=== PATIENT | female | born 1985 | race Caucasian/White ===

== ENCOUNTER → 2016-10-13 | Outpatient (CLI) | payer BC ==
[2016-10-13 18:57] LABS: ALT 27 U/L (9-52); AST 21 U/L (14-36); Alkaline Phosphatase 52 U/L (38-126); Anion Gap 11 mmol/L; Blood Urea Nitrogen 14 mg/dL (7-17); Calcium 9.8 mg/dL (8.4-10.2); Carbon Dioxide 26 mmol/L (22-30); Chloride 106 mmol/L (98-107); Cholesterol 192 mg/dL (<200); Glucose 82 mg/dL (74-99); HDL Cholesterol 59 mg/dL (40-60); Non-African American GFR(MDRD) >60 (>60 ml/min/1.73 sqM); Sodium 143 mmol/L (137-145); Total Bilirubin 0.5 mg/dL (0.2-1.3); Total Protein 7.7 g/dL (6.3-8.2); Triglycerides 96 mg/dL (<150)
== END | disposition home or self-care (01) ==
LOC: MMGSC 10:19
PROVIDERS: ATTEND Family Medicine
DX: Z00.00 Encounter for general adult medical examination without abnormal findings (principal)
CPT/HCPCS: 36415; 80053; 80061

== ENCOUNTER → 2016-10-22 | Outpatient (CLI) | payer BC ==
[2016-10-22 18:53] LABS: Follicle Stimulating Hormone 2.3 mIU/mL; Prolactin 10.8 ng/mL (3.0-18.6)
== END ==
LOC: MMGSC 15:39
PROVIDERS: ATTEND Family Medicine
DX: E03.9 Hypothyroidism, unspecified (principal); R63.4 Abnormal weight loss; N92.6 Irregular menstruation, unspecified
CPT/HCPCS: 36415; 82626; 83001; 83002; 84146; 84439; 84443

== ENCOUNTER → 2021-09-17 | Outpatient (CLI) | payer BC ==
--- NOTE | 2021-09-18 02:11 | MR ---
EXAMINATION TYPE: MR shoulder LT wo con DATE OF EXAM: 09/17/2021 COMPARISON: None HISTORY: Left Shoulder Pain Multiplanar multiecho imaging of the left shoulder without contrast. The AC joint is intact. The biceps tendon is intact. Subscapularis tendon is intact. The glenoid labr a appear intact. No fracture seen. No evidence of subacromial impingement. The supraspinatus tendon a ppears fairly normal. No retraction. IMPRESSION: Negative MRI scan of the left shoulder. No evidence of rotator cuff tear.
== END | disposition home or self-care (01) ==
LOC: RADMRIMAIN 14:28
PROVIDERS: ATTEND Orthopaedic Surgery
DX: M25.512 Pain in left shoulder (principal)

== ENCOUNTER 2022-02-27 10:21 | Day surgery (SDC) | payer BC ==
--- NOTE | 2022-02-27 03:07 | HP ---
HISTORY AND PHYSICAL DATE OF SURGERY: 02/27/2022. HISTORY OF PRESENT ILLNESS: Leann Lucio is a 36-year-old patient, seen with progressive left shoulder pain. We discussed options for treatment. She elected to proceed with left shoulder arthroscopy. Consent was obtained. PAST MEDICAL HISTORY: Hypothyroidism. PAST SURGICAL HISTORY: section. DAILY MEDICATIONS: Levothyroxine. ALLERGIES: None. SOCIAL HISTORY: She denies tobacco use. PHYSICAL EVALUATION OF THE LEFT SHOULDER: Flexion is 160 degrees, abduction is 150 degrees, external rotation is 60 degrees with pain and weakness. Tenderness along the anterolateral acromion and rotator cuff insertion site as well as the subacromial space. Impingement is positive at 100. Drop- arm sign is positive. Distal neurovascular exam is intact. RADIOGRAPHS: Radiographs of the left shoulder; type 2 acromion. MRI of the left shoulder, no abnormality. IMPRESSION: 1. Left shoulder impingement with possible rotator cuff tear. 2. Hypothyroidism. PLAN: Left shoulder arthroscopy with subacromial decompression, possible arthroscopic rotator cuff repair and debridement. MMMIRNA / NAZIAN: [id number] /
[~2022-02-27 10:21] MED LIST: DEXAMETHASONE SOD PHOSPHATE 4 MG/ML 1 ML VIAL IV ONE; HYDROmorphone 0.5 MG/0.5 ML SYRINGE IVP PRN; LACTATED RINGERS 1,000 ML IV SCH; LIDOCAINE 1% (10MG/ML) FOR IV START INTRADERMA PRN; METOCLOPRAMIDE 5 MG/ML 2 ML VIAL IVP PRN; ONDANSETRON 4 MG/2 ML VIAL IVP ONE
[2022-02-27] MEDS ORDERED: MIDAZOLAM 2 MG/2 ML VIAL IVP ONE (11:17)
[2022-02-27] MEDS ORDERED: DEXAMETHASONE SOD PHOSPHATE 4 MG/ML 1 ML VIAL ONE (12:00)
[2022-02-27] MEDS ORDERED: NEOSTIGMINE 1 MG/ML 10 ML VIAL ONE (12:00)
[2022-02-27] MEDS ORDERED: LIDOCAINE 2% INJ 20 MG/ML (2 ML VIAL) ONE (12:00)
[2022-02-27] MEDS ORDERED: MIDAZOLAM 2 MG/2 ML VIAL ONE (12:00)
[2022-02-27] MEDS ORDERED: PROPOFOL 10 MG/ML 20 ML VIAL IV ONE (12:00)
[2022-02-27] MEDS ORDERED: GLYCOPYRROLATE 0.2 MG/ML 2 ML VIAL ONE (12:00)
[2022-02-27] MEDS ORDERED: SUCCINYLCHOLINE CHLORIDE 200 MG/10 ML VIAL IV ONE (12:00)
[2022-02-27] MEDS ORDERED: ROPIVACAINE 5 MG/ML 30 ML VIAL ONE (12:00)
[2022-02-27] MEDS ORDERED: ROCURONIUM 10 MG/ML (5 ML VIAL) IV ONE (12:00)
[2022-02-27] MEDS ORDERED: fentaNYL (PF) 50 MCG/ML 2 ML AMP ONE (12:00)
[2022-02-27 13:15] VITALS: TEMP 97
--- NOTE | 2022-02-27 13:20 | P.OP ---
Date of Procedure: 02/27/22 Preoperative Diagnosis: Left shoulder impingement Postoperative Diagnosis: 1. Left shoulder rotator cuff tear 2. Left shoulder impingement Procedure(s) Performed: 1. Left shoulder arthroscopic rotator cuff repair 2. Left shoulder arthroscopic subacromial decompression Implants: 14.75 Arthrex swivel lock anchor Anesthesia: GETA, regional (Interscalene block) Surgeon: Gian Maldonado Family Dentist #1: Ethan Wagoner Estimated Blood Loss (ml): 10 Pathology: none sent Condition: stable Disposition: PACU Indications for Procedure: 36-year-old patient seen with progressive left shoulder pain. After treatment options were discussed, she elected to proceed with arthroscopy. Operative Findings: See description of procedure Description of Procedure: Patient underwent an interscalene block by department of anesthesia. The patient was then taken to the operative suite. The patient underwent a general anesthetic by the department of anesthesia. The patient was placed into a lateral position and secured. There was appropriate padding of the bony prominence. Left shoulder was then prepped and draped in normal sterile orthopedic fashion. We placed the extremity in 10 pounds of longitudinal traction. A posterior incision was now made for a posterior working portal site. The trocar and cannula were inserted into the glenohumeral joint. Arthroscopy was initiated. Spinal needle was now inserted anteriorly, to ascertain the anterior working portal site. An incision was now made in that area, a trocar was inserted followed by a probe. The labrum was probed and was found to be stable. There was no significant chondromalacia present. The biceps tendon appeared stable. Instruments were now removed from glenohumeral joint. Utilizing the posterior working portal site, the trocar and cannula were inserted into the subacromial space. Arthroscopy initiated. I made an incision 2 fingerbreadths lateral to the acromion. I introduced my trocar followed by my ArthroCare ablator. I now began ablating thick subacromial bursal tissue, which exposed the undersurface of the anterior acromion. There was diminished subacromial space. There was a very prominent anterior acromion. A motorized bur was introduced and a subacromial decompression was performed. I also excised some osteophytes off the inferior aspect of the distal clavicle. The AC joint was visualized and noted to be mildly arthritic. I turned my attention to the rotator cuff tendon. Upon probing the tendon noted a area significant tearing along the anterior distal supraspinatus. Upon probing that area was a full- thickness perforation present. I debrided the margins getting down to stable tendon tissue. I abraded the footprint with a motorized bur. With the assistance of Finn HALE I passed 2 everted mattress sutures through good bites of rotator cuff tendon. I punched a hole in the footprint area for insertion of an anchor. All 4 limbs of suture were passed through the eye head of a 4.75 Arthrex swivel lock anchor. The eyelet was placed into the pre-punch hole. I held it in position while Finn HALE tensioned all 4 suture limbs and deployed the anchor was good fixation noted. All residual suture limbs were now clipped. We had good compression of the tendon along the entire footprint. Instruments now removed from the portal sites. All portal sites were approximated with nylon suture. Sterile dressings were applied followed by a shoulder sling. Ethan HALE assisted in this complex case. The patient was awakened, transferred to a bed, and taken to recovery in stable condition.
[2022-02-27 14:17] VITALS: RESP 16
[2022-02-27 15:02] VITALS: BP 113/73; PULSE 87
--- NOTE | 2022-02-27 19:38 | P.ANPRN ---
Procedure Note - Anesthesia - Nerve Block Performed Left Interscalene Single Time Out Performed: Yes Date of Procedure: 02/27/22 Procedure Start Time: Procedure Stop Time: Location of Patient: PreOp Indication: Acute Post-Operative Pain, Requested by Surgeon Sedation Type: Sedate with meaningful contact maintained Preparation: Sterile Prep Position: Supine Needle Types: Pajunk Needle Gauge: 21 Ultrasound used to visualize needle placement: Yes Ultrasound used to observe medication spread: Yes Blood Aspirated: No Pain Paresthesia on Injection Noted: No Resistance on Injection: Normal Image Stored and Saved: Yes Events: Uneventful and Well Tolerated (ropi .5% 20cc plus dexamethasone 4mg)
== END 2022-02-27 15:17 | disposition home or self-care (01) ==
LOC: OR 10:21
PROVIDERS: ATTEND Orthopaedic Surgery
DX: M75.102 Unspecified rotator cuff tear or rupture of left shoulder, not specified as traumatic (principal); M25.812 Other specified joint disorders, left shoulder; E03.9 Hypothyroidism, unspecified; Z98.891 History of uterine scar from previous surgery; K21.9 Gastro-esophageal reflux disease without esophagitis; Z79.890 Hormone replacement therapy
CPT/HCPCS: 64415; 76942; 29826; 29827; C1713; J2250; J0330; J1100; J2710; J2405; J0690; J3010; J2795; J2704; J2001